=== PATIENT | male | born 1940 | race Caucasian/White ===

== ENCOUNTER 2024-09-03 15:19 | Outpatient (NON) | payer MEDICARE, SELFPAY ==
[2024-09-03 16:17] LABS: INR 1.6; Prothrombin Time 19.9 Seconds (11.1-14.7)
== END 2024-09-03 15:20 | disposition home or self-care (01) ==
PROVIDERS: PCP Internal Medicine Geriatric Medicine; Visit Provider Internal Medicine Geriatric Medicine
DX: I48.91 Unspecified atrial fibrillation (principal); Z79.01 Long term (current) use of anticoagulants
CPT/HCPCS: 85610

== ENCOUNTER 2025-09-26 10:26 | Outpatient (NON) | payer MEDICARE, SELFPAY ==
[2025-09-26 11:06] LABS: Add Urine Microscopic? YES; Appearance Urine Turbid (Clear); Glucose Urine UA Trace mg/dL (Negative); Leukocyte Esterase Ur 3+ LEU/UL (Negative); Need Manual Microscopic Reviewed; Nitrate Urine Negative (Negative); Non Pathogenic Casts >20; Specific Grav Ur 1.019 (1.001-1.035)
== END 2025-09-26 10:27 | disposition home or self-care (01) ==
PROVIDERS: PCP Internal Medicine Geriatric Medicine; Visit Provider Internal Medicine Geriatric Medicine
DX: R33.9 Retention of urine, unspecified (principal)
CPT/HCPCS: 81001